=== PATIENT | male | born 1940 | race Caucasian/White ===

== ENCOUNTER 2017-05-07 09:26 | Emergency (ER) | payer MEDICARE ==
[~2017-05-07] VITALS: Ht 180.3 cm; Wt 79.4 kg
[~2017-05-07 09:26] MED LIST: AMIODARONE HCL200 MG PO; FLUOXETINE HCL20 MG PO; METOPROLOL TART50 MG PO; RAMIPRIL10 MG PO; WARFARIN SODIU2.5 MG PO; WARFARIN SODIUM4 MG PO
[2017-05-07] MEDS ORDERED: MINOCYCLINE HCL50 MG PO ×2 (11:24→11:25)
[2017-05-07] MEDS ORDERED: WARFARIN SODIUM1 MG PO (11:25)
[2017-05-07 11:35] VITALS: BP 195/93
== END 2017-05-07 12:45 | disposition home or self-care (01) ==
LOC: FSED 09:26
DX: R42 Dizziness and giddiness (principal); R20.2 Paresthesia of skin; Z95.0 Presence of cardiac pacemaker
CPT/HCPCS: 93005

== ENCOUNTER 2019-02-18 07:14 | Emergency (ER) | payer MEDICARE ==
[~2019-02-18] VITALS: Ht 180.3 cm; Wt 79.4 kg
[~2019-02-18 07:14] MED LIST changes: +MINOCYCLINE HCL50 MG PO; +WARFARIN SODIUM1 MG PO
== END 2019-02-18 07:55 | disposition home or self-care (01) ==
LOC: ER 07:14
DX: R05 Cough (principal); J20.9 Acute bronchitis, unspecified
CPT/HCPCS: 99282

== ENCOUNTER 2019-06-12 00:54 | Emergency (ER) | payer MEDICARE ==
[~2019-06-12] VITALS: Ht 180.3 cm; Wt 79.4 kg
--- NOTE | 2019-06-12 01:55 | Diagnostic Imaging Report ---
EXAM: ABDOMEN 2 VIEW, DATE: 06/12/2019 12:59 AM INDICATION: No bowel movement. COMPARISON: None FINDINGS: LINES/TUBES: None BOWEL PATTERN: No dilatation of small bowel loops in the right lower quadrant suggesting mild ileus. Large volume of stool within the colon and rectum. SOFT TISSUES: Vascular calcifications. Multiple small phleboliths in the lower pelvis. LUNG BASES: Mild bibasilar scarring. Right atrial and right ventricular pacemaker leads. BONES: No acute findings. Degenerative changes of the lumbar spine with mild rotatory levoscoliosis. IMPRESSION: Large volume of stool within the colon and rectum. Signed by: Dr. Christiano Santamaria M.D. on 06/12/2019 1:52 AM
[2019-06-12] MEDS ORDERED: SOD PHOSPHATE/SOD BIPHOSPHATE ENEMA 132 ML BTL PR ONE (02:10)
--- NOTE | 2019-06-12 02:15 | NUR ---
PT CHECKED DIGITALLY FOR IMPACTION PER MD ORDERS. NO IMPACTION NOTED, PT NOTED PASSING FLATUS. MD STATES TO DC PATIENT C INSTRUCTION TO TAKE OTC MIRALAX AND PERFORM ENEMA NEEDED.
== END 2019-06-12 02:11 | disposition home or self-care (01) ==
LOC: ER 00:54
DX: K59.00 Constipation, unspecified (principal); R10.84 Generalized abdominal pain; G62.9 Polyneuropathy, unspecified; Z95.0 Presence of cardiac pacemaker; Z96.653 Presence of artificial knee joint, bilateral
CPT/HCPCS: 74019; 99283

== ENCOUNTER 2019-10-31 14:02 | Emergency (ER) | payer MEDICARE ==
[~2019-10-31] VITALS: Ht 180.3 cm; Wt 79.4 kg
[2019-10-31] MEDS ORDERED: DIATRIZOATE MEGL/DIATRIZOA SOD 30 ML BTL PO ONE (14:48)
[2019-10-31 14:54] LABS: BASOPHILS % 0.4 % (0.0-1.0); EOSINOPHILS # (AUTO) 0.2 (0.0-0.4); EOSINOPHILS % 1.9 % (0.0-6.0); HEMATOCRIT 43.2 % (38.2-49.6); HEMOGLOBIN 14.7 g/dL (14.0-18.0); LYMPHOCYTES # (AUTO) 0.9 (1.0-3.2); LYMPHOCYTES % 10.9 % (18.0-39.1); MEAN CORPUSCULAR HEMOGLOBIN 31.1 pg (28-32); MEAN CORPUSCULAR VOLUME 91.5 fL (81-99); MONOCYTES % 12.2 % (4.4-11.3); NEUTROPHILS # (AUTO) 5.9 (2.1-6.9); NEUTROPHILS % 74.3 % (38.7-80.0); PLATELET COUNT 204 x10e3/uL (140-360); RED BLOOD COUNT 4.72 x10e6/uL (4.3-5.7); RED CELL DISTRIBUTION WIDTH 12.9 % (11.7-14.4)
[2019-10-31 15:02] LABS: ALANINE AMINOTRANSFERASE 29 IU/L (0-55); ALBUMIN 4.6 g/dL (3.5-5.0); ALBUMIN/GLOBULIN RATIO 1.5 (0.8-2.0); ALKALINE PHOSPHATASE 73 IU/L (40-150); ANION GAP 14.9 mmol/L (8-16); BLOOD UREA NITROGEN 10 mg/dL (7-26); BUN/CREATININE RATIO 14 (6-25); CALCIUM 9.4 mg/dL (8.4-10.2); CARBON DIOXIDE 25 mmol/L (22-29); CHLORIDE 99 mmol/L (98-107); EST GLOMERULAR FILTRATION RATE > 60 ML/MIN (60-); GLUCOSE 99 mg/dL (74-118); POTASSIUM 3.9 mmol/L (3.5-5.1); SODIUM 135 mmol/L (136-145)
--- OUTSIDE RECORDS SUMMARY | 2019-10-31 16:12 | XMS REPORT | Continuity of Care Document ---
Author Author [employer] DOROTHY Carrion Organization [employer] Address Unknown Phone Unavailable Care Team Providers Care Midlevel Provider Name Role Phone [employer] Unavailable Un available Problems Problem Status Onset Date Classification Date Reported Comments Source Former smoker Active Problem 12/06/2017 Adelaide Felipe Essential hypertension Active Problem 12/06/2017 Mohchauncey Felipe Abnormal EKG Active Problem 12/06/2017 Adelaide Felipe Status post catheter ablation of atrial fibrillation Active Problem 12/06/2017 Adelaide Felipe Paroxysmal a-fib Active Problem 12/06/2017 Adelaide Felipe Dizziness Active Problem 12/06/2017 Adelaide Felipe Arteriosclerosis of both carotid arteries Active Problem 12/06/2017 Adelaide Felipe Near syncope Active Problem 12/06/2017 Adelaide Felipe Status post catheter ablation of atrial flutter Active Problem 12/06/2017 Adelaide Felipe HERRON (dyspnea on exertion) Acti ve Problem 02/2018 Adelaide Felipe Weakness of both lower extremities Active Problem 02/2018 Adelaide Felipe Chronic systolic heart failure Active Problem 02/2018 Adelaide Felipe Autonomic postural hypotension Active Problem 02/2018 Adelaide Felipe Autonomic dysfunction Active Problem 12/06/2017 Adelaide Felipe Cardiac pacemaker in situ Acti ve Problem 02/2018 Adelaide Felipe Chest Pain Active Diagnosis 11/30/2013 Adelaide Felipe Osteoarthrosis, unspecified whether gene ralized or localized, unspecified site Active Problem 11/30/2013 Adelaide Felipe Atrial flutter Active Diagnosis 11/30/2013 Adelaide Felipe HERRON (dyspnea on exertion) Acti ve Problem 08/2013 Adelaide Felipe Abnormal EKG Active Problem 11/30/2013 Adelaide Felipe HTN, Benign Active Problem 11/30/2013 Adelaide Felipe CHF Chronic Systolic Heart Failure Active Problem 08/2013 Adelaide Felipe HTN heart dis, benign, with CHF Active Problem 08/2013 Adelaide Felipe Medications Medication Details Route Status Patient Instructions Ordering Provider Order Date Source Warfarin Sodium 1 tablet Orally Active 2.5 MG Orally daily Destinee Felipe Calcium 1 tablet with meals Orally Active 500 MG Orally Twice a day Destinee Felipe Fluoxetine HCl 1 capsule in th morning Orally Active 20 mg Orally Once a day Destinee Avilachauncey Shahnaz Felipe Metoprolol Succinate 1 tablet Orally Active 50 mg Orally twice a day (bid) Destinee Avilachauncey Shahnaz Felipe Digoxin 1 tablet orally Active 0.25 mg orally // [facility] Amiodarone HCl 1 tablet Orally Active 200 MG Orally Once a da y Destinee Avilachauncey Shahnaz Felipe Ramipril 1 capsule Orally Active 5 MG Orally Once a day [facility] Felipe BuPROPion HCl 1 tablet Orally Active 300 MG Orally Once a da y Destinee Avilachauncey Shahnaz Felipe Warfarin Sodium 1 tablet PO Active 5 MG PO 5/ 2.5 Alternat ing Destinee Felipe Allergies, Adverse Reactions, Alerts Substance Category Reaction Severity Reaction type Status Date Reported Comments Source Peridex Adverse Reaction hives Adverse Reaction Active 11/07/2013 Adelaide Felipe Immunizations No Data Provided for This Section Results No Data Provided for This Section Pathology Reports No Data Provided for This Section Diagnostic Reports No Data Provided for This Section Consultation Notes No Data Provided for This Section Discharge Summaries No Data Provided for This Section History and Physicals No Data Provided for This Section Vital Signs Vital Sign Value Date Comments Source Weight 181 11/07/2013 Adelaied Felipe Height 71 0 11/07/2013 Adelaide Felipe Temperature Oral (F) 98.5 F 11/07/2013 Adelaide Felipe Heart Rate 100 11/07/2013 Adelaide Felipe Diastolic (mm Hg) 82 11/07/2013 Adelaide Felipe Systolic (mm Hg) 120 11/07/2013 Adelaide Felipe Encounters Location Location Details Encounter Type Encounter Number Reason For Visit Attending Provider ADM Date DC Date Status Source Adelaide Felipe MD [place] Unknown [id number] 11/08/19 14 11/07/2013 Adelaide Felipe Procedures No Data Provided for This Section Assessment and Plan No Data Provided for This Section Plan of Care No Data Provided for This Section Social History Social History Date Source Social History ElementQualifiersDate Rep orted Smoking . Status Former Smoker Quit in 1970 Nov 07, 2013 Alcohol Use Yes. 3 beers per day Nov 07, 2013 Alcohol Screening: Yes. Did you have a drink containing alcohol in the past year?: Yes, How often did you have a drink containing alcohol in the past year?: Two to four times a month (2 points), How many drinks did you have on a typical day when you were drinking in the past year?: 3 or 4 (1 point), How often did you have six or more drinks on one occasion in the past year?: Weekly (3 points), Points: 6, Interpretation: Positive Nov 07, 2013 Marital Status: . Nov 07, 2013 Do you drink alcohol? Yes. Nov 07, 2013 11/07/2013 Adelaide Felipe Family History No Data Provided for This Section Advance Directives No Data Provided for This Section Functional Status No Data Provided for This Section
--- OUTSIDE RECORDS SUMMARY | 2019-10-31 16:12 | XMS REPORT | Continuity of Care Document ---
Author Author [facility] t Organization [facility] Address [address] [place] [address] Phone Unavailable Care Team Providers Care Activity Therapy Specialist Name Role Phone EDITA FISHER MD PCP Himanshu ABBOTT Attphymonika Unavailable Payers Payer Name Policy Type Policy Number Effective Date Expiration Date Monika ESPINOZA [id number] 2018 00:00:00 [facility] Medicare A & B [id number] [facility] Problems Condition Name Condition Details Condition Category Status Onset Date Resolution Date Last Treatment Date Treating Clinician Comments Source Former smoker Form er smoker Active Problem 12/06/2017 Mohamed O Jeroudi Problem Active 2017-12-06 02:47:50 Riya Razo Essential hypertension Esse ntial hypertension Active Problem 12/06/2017 Mohamed O Jeroudi Problem Active 20 13-12-11 02:47:50 Riya Razo Abnormal EKG Abno rmal EKG Active Problem 12/06/2017 Mohamed O Jeroudi Problem Active 2017-12-06 02:47:50 Riya Razo Status post catheter ablation of atrial fibrillation Status post catheter ablation of atrial fibrillation Active Problem 12/06/2017 Mohamed O Jeroudi Problem Active 2017-12-06 02:47:50 Riya Razo Paroxysmal a-fib Paro xysmal a-fib Active Problem 12/06/2017 Mohamed O Jeroudi Problem Active 2017-12-06 02:47:50 Riya Razo Dizziness Dizz iness Active Problem 12/06/2017 Mohamed O Jeroudi Problem Active 2017-12-06 02:47:50 Riya Razo Arteriosclerosis of both carotid arteries Arteriosclerosis of both carotid arteries Active Problem 12/06/2017 Mohamed O Jeroudi Problem Active 2017-12-06 02:47:50 Tae Razo Near syncope Near syncope Active Problem 12/06/2017 Adelaide Gillilanddi Problem Active 2017-12-06 02:47:50 [facility] Status post catheter ablation of atrial flutter Status post catheter ablation of atrial flutter Active Problem 12/06/2017 Adelaide Gillilanddi Problem Active 2017-12-06 02:47:50 Tae [facility] [place] HERRON (dyspnea on exertion) HERRON (dyspnea on exertion) Active Problem 12/06/2017 Adelaide Felipe Problem Active 13-12-11 02:47:50 [facility] Weakness of both lower extremities Weakness of both lower extremities Active Problem 12/06/2017 Mohchauncey Gillilanddi Problem Active 2017-12-06 02:47:50 [facility] Chronic systolic heart failure Chronic systolic heart failure Active Problem 12/06/2017 Adelaide Felipe Problem Active 2017-12-06 02:47:50 [facility] 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 Active Problem 12/06/2017 Adelaide Felipe Problem Active 2017-12-06 02:47:50 [facility] Autonomic dysfunction Auto nomic dysfunction Active Problem 12/06/2017 Adelaide Felipe Problem Active 2017-12-06 02:47:5 0 [facility] Cardiac pacemaker in situ Card iac pacemaker in situ Active Problem 12/06/2017 Adelaide Felipe Problem Active 13-12-11 02:47:50 [facility] Chest Pain Ches t Pain Active Diagnosis 11/30/2013 Adelaide Felipe Diagnosis Active 2013-11-30 02:48:44 [facility] Osteoarthrosis, unspecified whether generalized or loc alized, unspecified site Osteoarthrosis, unspecified whether generalized or localized, unspecified site Active Problem 11/30/2013 Adelaide Gillilanddi Problem Active 2013-11-30 02:48:44 [facility] [place] Atrial flutter Atri al flutter Active Diagnosis 11/30/2013 Mohamed O Austinoudi Diagnosis Active 2013-11-30 02:48:4 4 [facility] [place] HERRON (dyspnea on exertion) HERRON (dyspnea on exertion) Active Problem 11/30/2013 Adelaide Gillilanddi Problem Active 08-12-05 02:48:44 [facility] Abnormal EKG Abno rmal EKG Active Problem 11/30/2013 Mohamed O Austinoudi Problem Active 2013-11-30 02:48:44 [facility] HTN, Benign HTN, Benign Active Problem 11/30/2013 Adelaide Avilaoudi Problem Active 2013-11-30 02:48:44 [facility] CHF Chronic Systolic Heart Failure CHF Chronic Systolic Heart Failure Active Problem 11/30/2013 Adelaide Avilaoudi Problem Active 2013-11-30 02:48:44 [facility] HTN heart dis, benign, with CHF HTN heart dis, benign, with CHF Active Problem 11/30/2013 Adelaide Avilaoudi Problem Active 2013-11-30 02:48:44 [facility] Allergies, Adverse Reactions, Alerts Allergy Name Allergy Type Status Severity Reaction(s) Onset Date Inacti ve Date Treating Clinician Comments Source Chlorhexidine Allergy to Substance Active 2017-05-07 00:00: 00 [facility] Peridex Peridex Active hives 2013-11-07 00:00:00 [facility] Social History Social Habit Start Date Stop Date Quantity Comments Source Smoking 2013-11-07 00:00:00 2013-11-07 00:00:00 [facility] Medications Ordered Medication Name Filled Medication Name Start Date Stop Da te Current Medication? Ordering Clinician Indication Dosage Frequency Signature (SIG) Comments Components Source Warfarin Sodium 2017-12-06 02:47:50 Yes Mohamed Jeroudi 1 tablet [facility] Calcium 2013-11-30 02:48:44 Yes Mohamed Jeroudi 1 tablet with meals [facility] Fluoxetine HCl 2013-11-30 02:48:44 Yes Mohamed Jeroudi 1 capsule in the morning [facility] Metoprolol Succinate 2013-11-30 02:48:44 Yes Mohamed Jeroudi 1 tablet [facility] Digoxin 2013-11-30 02:48:44 Yes Mohamed Jeroudi 1 tablet [facility] Amiodarone HCl 2013-11-30 02:48:44 Yes Mohamed Jeroudi 1 tablet [facility] Ramipril 2013-11-30 02:48:44 Yes Mohamed Jeroudi 1 capsule [facility] BuPROPion HCl 2013-11-30 02:48:44 Yes Mohamed Jeroudi 1 tablet [facility] Warfarin Sodium 2013-11-30 02:48:44 Yes Mohamed Jeroudi 1 tablet [facility] Amiodarone Hcl 200 Mg Tablet Amiodarone Hcl 200 Mg Tablet Y es 200 M,W,F [facility] Fluoxetine Hcl 20 Mg Capsule Fluoxetine Hcl 20 Mg Capsule Y es [address] [facility] Metoprolol Tartrate 50 Mg Tablet Metoprolol Tartrate 50 Mg Tablet Yes 50 Twice A Day [facility] Minocycline Hcl 50 Mg Capsule Minocycline Hcl 50 Mg Capsule Yes [address] [facility] Minocycline Hcl 50 Mg Capsule Minocycline Hcl 50 Mg Capsule Yes [address] [facility] Ramipril 10 Mg Capsule Ramipril 10 Mg Capsule Yes 10 Daily [facility] Warfarin Sodium 1 Mg Tablet Warfarin Sodium 1 Mg Tablet Yes 1 Daily [facility] Warfarin Sodium 2.5 Mg Tablet Warfarin Sodium 2.5 Mg Tablet Yes 2.5 T,W,Th, Sat,Sun [facility] Warfarin Sodium 4 Mg Tablet Warfarin Sodium 4 Mg Tablet Yes 5 M,F [facility] Vital Signs Vital Name Observation Time Observation Value Comments Source Weight 2013-11-07 20:00:00 [facility] Height 2013-11-07 20:00:00 [facility] Temperature Oral (F) 2013-11-07 20:00:00 98.5 F [facility] Heart Rate 2013-11-07 20:00:00 [facility] Diastolic (mm Hg) 2013-11-07 20:[facility] Systolic (mm [facility]) 2013-11-07 20:00:00 [facility] Procedures This patient has no known procedures. Encounters Start Date/Time End Date/Time [facility] ID Source 2019-06-12 00:54:00 2019-06-12 02:11:00 Departed Emergency Room 1 ABBOTT ALYSSA [facility] [id number] [facility] 2019-02-18 07:14:00 2019-02-18 07:55:00 Departed Emergency Room [facility] [id number] [facility] 2017-10-24 09:08:00 2017-10-24 09:08:00 Outpatient Adelaide Gillilanddi MD [place] [id number] [employer] 2017-05-07 09:26:00 2017-05-07 12:45:00 Departed Emergency Room [facility] [id number] [facility] 2017-05-03 17:02:00 2017-05-03 17:02:00 Outpatient Adelaide Felipe MD [place] [id number] [employer] 2016-10-12 13:28:00 2016-10-12 13:28:00 Outpatient Adelaide Felipe MD [place] [id number] [employer] 2016-07-04 12:42:00 2016-07-04 12:42:00 Outpatient Adelaide Felipe MD [place] [id number] [employer] 2013-11-07 15:00:00 2013-11-07 15:00:00 [place] [id number] [employer] Results Test Description Test Time Test Comments Results Result Comments Source ABDOMEN 2 VIEW 2019-06-12 01:49:00 [place] [address] Patient Name: DOROTHY ESTEVEZ MR #: [id number] : 1940 Age/Sex: 78/M Req #: [id number] Adm Physician: Ordered by: ALYSSA ABBOTT MD Report #: [id number] Location: ER Room/Bed: Procedure: [id number] DX/ABDOMEN 2 VIEW Exam Date: 06/12/19 Exam Time: 0130 REPORT STATUS: Signed EXAM: ABDOMEN 2 VIEW, DATE: 06/12/2019 12:59 AM INDICATION: No bowel movement. COMPARISON: None FINDINGS: LINES/TUBES: None BOWEL PATTERN: No dilatation of small bowel loops in the right lower quadrant suggesting mild ileus. Large volume of stool within the colon and rectum. SOFT TISSUES: Vascular calcifications. Multiple small phleboliths in the lower pelvis. LUNG BASES: Mild bibasilar scarring. Right atrial and right ventricular pacemaker leads. BONES: No acute findings. Degenerative changes of the lumbar spine with mild rotatory levoscoliosis. IMPRESSION: Large volume of stool within the colon and rectum. Signed by: Dr. Christiano Hannon M.D. on 06/12/2019 1:52 AM Dictated By: OLIVER HANNON MD, MD 1 Transcribed By: JIM on 06/12/19151 COPY TO: ALYSSA ABBOTT MD
--- OUTSIDE RECORDS SUMMARY | 2019-10-31 16:12 | XMS REPORT ---
Author Author Duc Felipe Organization [employer] Address Unknown Phone Unavailable Care Team Providers Care Railroad Baggage Porter Name Role Phone Adelaide Felipe CP Unavailable Allergies, Adverse Reactions, Alerts Substance Reaction Event Type Peridex hives Drug Allergy Encounters Encounter Location Date Unknown Adelaide Felipe MD [place] Nov 07, 2013 Problems Problem Type Condition ICD-9 Code Onset Dates Condition Statu s Assessment Chest Pain 786.51 Active Problem Osteoarthrosis, unspecified whether generalized or localized, unspecified site 715.90 Active Assessment Atrial flutter 427.32 Active Problem HERRON (dyspnea on exertion) 786.09 Ac tive Problem Abnormal EKG 794.31 Active Problem Atrial flutter 427.32 Active Problem Chest Pain 786.51 Active Problem HTN, Benign 401.1 Active Problem CHF Chronic Systolic Heart Failure 428.22 Active Problem HTN heart dis, benign, with CHF 402.11 Active Assessment HTN heart dis, benign, with CHF 402.11 Active Assessment HTN, Benign 401.1 Active Assessment HERRON (dyspnea on exertion) 786.09 Ac tive Assessment Abnormal EKG 794.31 Active Assessment Osteoarthrosis, unspecified whether generalized or localized, unspecified site 715.90 Active Assessment CHF Chronic Systolic Heart Failure 428.22 Active Medications Medication Code System Code Instructions Start Date End Date Status Dosage [facility] [address] 500 MG Orally Twice a day A ctive 1 tablet with meals Fluoxetine HCl [facility] [address]-92 20 mg Orally Once a day Active 1 capsule in the morning Metoprolol Succinate Unknown 0 50 mg Orally twice a day (bid) Active 1 tablet Digoxin Unknown 0 0.25 mg orally M// Active 1 t ablet Amiodarone HCl [facility] [address]-27 200 MG Orally Once a day Active 1 tablet Ramipril [facility] [address]-13 5 MG Orally Once a day A ctive 1 capsule BuPROPion HCl [facility] [address]-29 300 MG Orally Once a day Active 1 tablet Warfarin Sodium [facility] [address]-83 5 MG PO 5/ 2.5 Alternating Active 1 tablet Social History Social History Element Qualifiers Date Reported Smoking . Status Former Smoker Quit in [...] you drink alcohol? Yes. Nov 07, 2013 Vital Signs Date/Time: Nov 07, 2013 Weight 181 lbs Height 71 in Temperature 98.5 F Cardiac Monitoring Heart Rate 100 /min Blood Pressure Diastolic 82 mm Hg Blood Pressure Systolic 120 mm Hg Summary Purpose [employer] Submission
--- OUTSIDE RECORDS SUMMARY | 2019-10-31 16:12 | XMS REPORT ---
Author Author Alvin Felipe Organization [employer] Address Unknown Phone Unavailable Care Team Providers Care Export Freight Specialist Name Role Phone Adelaide Felipe CP Unavailable Allergies No Known Allergies Problems Problem Type Condition Code Onset Dates Condition Statu s Problem Former smoker Z87.891 Active Problem Essential hypertension I10 Activ e Problem Abnormal EKG R94.31 Active Problem Status post catheter ablation of atrial fibrillation Z 98.890 Active Problem Paroxysmal a-fib I48.0 Active Problem Dizziness R42 Active Problem Arteriosclerosis of both carotid arteries I65.23 Active Problem Near syncope R55 Active Problem Status post catheter ablation of atrial flutter Z98.89 Active Problem HERRON (dyspnea on exertion) R06.09 Ac tive Problem Weakness of both lower extremities M62.81 Active Problem Chronic systolic heart failure I50.22 Active Medications No Known Medications Results No Known Results Summary Purpose [employer] Submission
--- OUTSIDE RECORDS SUMMARY | 2019-10-31 16:12 | XMS REPORT ---
Author Author Alvin Felipe Organization [employer] Address Unknown Phone Unavailable Care Team Providers Care Remotely Operated Vehicle Name Role Phone Adelaide Felipe CP Unavailable Allergies No Known Allergies Problems Problem Type Condition Code Onset Dates Condition Statu s Problem Paroxysmal a-fib I48.0 Active Problem Abnormal EKG R94.31 Active Problem Former smoker Z87.891 Active Problem Status post catheter ablation of atrial fibrillation Z 98.890 Active Problem Arteriosclerosis of both carotid arteries I65.23 Active Problem Weakness of both lower extremities M62.81 Active Problem Dizziness R42 Active Problem HERRON (dyspnea on exertion) R06.09 Ac tive Problem Essential hypertension I10 Activ e Problem Chronic systolic heart failure I50.22 Active Problem Status post catheter ablation of atrial flutter Z98.89 Active Medications No Known Medications Results No Known Results Summary Purpose [employer] Submission
--- OUTSIDE RECORDS SUMMARY | 2019-10-31 16:12 | XMS REPORT ---
Author Author Alvin Felipe Organization [employer] Address Unknown Phone Unavailable Care Team Providers Care Metal Casket Maker Name Role Phone Adelaide Felipe CP Unavailable Allergies No Known Allergies Problems Problem Type Condition Code Onset Dates Condition Statu s Problem Former smoker Z87.891 Active Problem Abnormal EKG R94.31 Active Problem Paroxysmal a-fib I48.0 Active Problem Status post catheter ablation of atrial fibrillation Z 98.890 Active Problem Status post catheter ablation of atrial flutter Z98.89 Active Problem Dizziness R42 Active Problem Arteriosclerosis of both carotid arteries I65.23 Active Problem Near syncope R55 Active Problem HERRON (dyspnea on exertion) R06.09 Ac tive Problem Chronic systolic heart failure I50.22 Active Problem Weakness of both lower extremities M62.81 Active Problem Essential hypertension I10 Activ e Medications No Known Medications Results No Known Results Summary Purpose [employer] Submission
--- OUTSIDE RECORDS SUMMARY | 2019-10-31 16:12 | XMS REPORT ---
Author Author Alvin Felipe Organization [employer] Address Unknown Phone Unavailable Care Team Providers Care Critical Care Clinical Nurse Specialist Name Role Phone Adelaide Felipe CP Unavailable Allergies No Known Allergies Problems Problem Type Condition Code Onset Dates Condition Statu s Problem HERRON (dyspnea on exertion) R06.09 Ac tive Problem Status post catheter ablation of atrial flutter Z98.89 Active Problem Essential hypertension I10 Activ e Problem Autonomic postural hypotension I95.1 Active Problem Autonomic dysfunction G90.9 Active Problem Cardiac pacemaker in situ Z95.0 Ac tive Problem Arteriosclerosis of both carotid arteries I65.23 Active Problem Weakness of both lower extremities M62.81 Active Problem Near syncope R55 Active Problem Dizziness R42 Active Problem Former smoker Z87.891 Active Problem Paroxysmal a-fib I48.0 Active Assessment Paroxysmal a-fib I48.0 Active Problem Abnormal EKG R94.31 Active Problem Status post catheter ablation of atrial fibrillation Z 98.890 Active Problem Chronic systolic heart failure I50.22 Active Medications Medication Code System Code Instructions Start Date End Date Status Dosage Warfarin Sodium [facility] 13725646601 2.5 MG Orally daily Active 1 tablet Results No Known Results Summary Purpose [employer] Submission
--- NOTE | 2019-10-31 16:46 | Diagnostic Imaging Report ---
EXAMINATION: CT of the abdomen and pelvis with contrast. TECHNIQUE: Helical CT images of the abdomen and pelvis were performed from the lung bases to the lesser trochanters after the intravenous administration of 100 cc of Omnipaque 300 and the oral administration of enteric contrast. Coronal and sagittal reformatted images were obtained. Dose modulation, iterative reconstruction, and/or weight based adjustment of the mA/kV was utilized to reduce the radiation dose to as low as reasonably achievable. COMPARISON: None. CLINICAL HISTORY:Abdominal pain DISCUSSION: ABDOMEN/PELVIS: LOWER THORAX:Unremarkable. HEPATOBILIARY: No focal hepatic lesions. No intra-or extrahepatic biliary ductal dilation. The gallbladder is normal. SPLEEN: No splenomegaly. PANCREAS: No focal masses or ductal dilatation. ADRENALS: No adrenal nodules. KIDNEYS/URETERS: No hydronephrosis, stones, or solid mass lesions. PELVIC ORGANS/BLADDER: Filling defect in the base of the bladder appears to be reflective of prostatic hypertrophy. PERITONEUM/RETROPERITONEUM: No free air or fluid. LYMPH NODES: No intra-abdominal, retroperitoneal, pelvic or inguinal lymphadenopathy. VESSELS: The celiac trunk,superior and inferior mesenteric and bilateral renal arteries are patent The portal, superior mesenteric and splenic veins are patent. GI TRACT: No obstruction. Colonic diverticulosis without inflammatory change BONES AND SOFT TISSUE: No bony destructive lesions. No soft tissue abnormalities. IMPRESSION: No acute CT finding. Colonic diverticulosis without inflammatory change Signed by: Dr. Gumaro Morin M.D. on 10/31/2019 4:42 PM
[2019-10-31 16:53] LABS: BILIRUBIN,URINE NEGATIVE (NEGATIVE); CLARITY,URINE SL CLOUDY (CLEAR); COLOR,URINE YELLOW (YELLOW); KETONES,URINE NEGATIVE (NEGATIVE); LEUKOCYTE ESTERASE ,URINE NEGATIVE (NEGATIVE); NITRITE,URINE NEGATIVE (NEGATIVE); PROTEIN,URINE DIPSTICK 1+ (NEGATIVE); URINE UROBILINOGEN 0.2 mg/dL (0.2 - 1)
[2019-10-31 17:01] LABS: BACTERIA,URINE FEW /HPF; RBC,URINE 21-50 /HPF (0-5)
[2019-10-31] MEDS ORDERED: COLACE100 MG PO (17:13)
--- NOTE | 2019-10-31 17:17 | Emergency Department Note ---
History of Present Illnes History of Present Illness Chief Complaint: General Medicine Complaints History of Present Illness This is a 79 year old male arrives to the ED with concerns of constipation.. Chief Complaint Comment Patient in from home with complaints of loose bowel movements after eating and then "dorian" shortly there after for the last 7 days. Patient reports that he sometimes goes to the restroom and has the urge to have a bowel movement but then nothing happens. Patient denies abdominal pain or other symptoms. Historian: Patient Arrival Mode: Car Onset (how long ago): week(s) Duration (how long): week(s) Progression: waxing and waning Past Medical/Family History Physician Review I have reviewed the patient's past medical and family history. Any updates have been documented here. Past Medical History Recent Fever: No Clinical Suspicion of Infectio: No New/Unexplained Change in Ment: No Past Medical History: A-Fib Other Medical History: Short term memory loss Past Surgical History: Pacer/AICD Other Surgery: BILATERAL KNEE SURGERY Social History Smoking Cessation: Never Smoker Counseling Performed: No Alcohol Use: None Any Illegal Drug Use: No Physically hurt or threatened: No Other Last Tetanus: unknown Any Pre-Existing Lines (PICC,: No Review of Systems Review of Systems Constitutional: Reports no symptoms EENTM: Reports no symptoms Cardiovascular: Reports no symptoms Respiratory: Reports no symptoms Gastrointestinal: Reports as per HPI Genitourinary: Reports no symptoms Musculoskeletal: Reports no symptoms Integumentary: Reports no symptoms Neurological: Reports no symptoms Psychological: Reports no symptoms Endocrine: Reports no symptoms Hematological/Lymphatic: Reports no symptoms Physical Exam Related Data Allergies: Coded Allergies: chlorhexidine (Verified Allergy, Unknown, 05/07/17) Triage Vital Signs Vital Signs Date Time Temp Pulse Resp B/P (MAP) Pulse Ox O2 Delivery O2 Flow Rate FiO2 10/31/19 14:09 99.4 106 19 182/112 100 Room Air Vital signs reviewed: Yes Physical Exam CONSTITUTIONAL Constitutional: Present well-developed, Present well-nourished HENT HENT: Present normocephalic, Present atraumatic, Present oropharynx clear/moist, Present nose normal HENT L/R: Present left ext ear normal, Present right ext ear normal EYES Eyes: Reports PERRL, Reports conjunctivae normal NECK Neck: Present ROM normal PULMONARY Pulmonary: Present effort normal, Present breath sounds normal CARDIOVASCULAR Cardiovascular: Present regular rhythm, Present heart sounds normal, Present capillary refill normal, Present normal rate GASTROINTESTINAL Abdominal: Present soft, Present bowel sounds normal, Present tender GENITOURINARY Genitourinary: Present exam deferred SKIN Skin: Present warm, Present dry MUSCULOSKELETAL Musculoskeletal: Present ROM normal NEUROLOGICAL Neurological: Present alert, Present oriented x 3, Present no gross motor or sensory deficits PSYCHOLOGICAL Psychological: Present mood/affect normal, Present judgement normal Results Laboratory Result Diagram: 10/31/19 1400 10/31/19 1400 Laboratory Laboratory Tests Test 10/31/19 14:00 White Blood Count 7.89 x10e3/uL (4.8-10.8) Red Blood Count 4.72 x10e6/uL (4.3-5.7) Hemoglobin 14.7 g/dL (14.0-18.0) Hematocrit 43.2 % (38.2-49.6) Mean Corpuscular Volume 91.5 fL (81-99) Mean Corpuscular Hemoglobin 31.1 pg (28-32) Mean Corpuscular Hemoglobin Concent 34.0 g/dL (31-35) Red Cell Distribution Width 12.9 % (11.7-14.4) Platelet Count 204 x10e3/uL (140-360) Neutrophils (%) (Auto) 74.3 % (38.7-80.0) Lymphocytes (%) (Auto) 10.9 % (18.0-39.1) Monocytes (%) (Auto) 12.2 % (4.4-11.3) Eosinophils (%) (Auto) 1.9 % (0.0-6.0) Basophils (%) (Auto) 0.4 % (0.0-1.0) Neutrophils # (Auto) 5.9 (2.1-6.9) Lymphocytes # (Auto) 0.9 (1.0-3.2) Monocytes # (Auto) 1.0 (0.2-0.8) Eosinophils # (Auto) 0.2 (0.0-0.4) Basophils # (Auto) 0.0 (0.0-0.1) Absolute Immature Granulocyte (auto 0.02 x10e3/uL (0-0.1) Urine Color Yellow (YELLOW) Urine Clarity Sl cloudy (CLEAR) Urine pH 7 (5 - 7) Urine Specific [place] 1.015 (1.010-1.025) Urine Protein 1+ (NEGATIVE) Urine Glucose (UA) Negative (NEGATIVE) Urine Ketones Negative (NEGATIVE) Urine Blood Moderate (NEGATIVE) Urine Nitrite Negative (NEGATIVE) Urine Bilirubin Negative (NEGATIVE) Urine Urobilinogen 0.2 mg/dL (0.2 - 1) Urine Leukocyte Esterase Negative (NEGATIVE) Urine RBC 21-50 /HPF (0-5) Urine WBC None /HPF (0-5) Urine Epithelial Cells None /LPF (NONE) Urine Bacteria Few /HPF (NONE) Sodium Level 135 mmol/L (136-145) Potassium Level 3.9 mmol/L (3.5-5.1) Chloride Level 99 mmol/L (98-107) Carbon Dioxide Level 25 mmol/L (22-29) Anion Gap 14.9 mmol/L (8-16) Blood Urea Nitrogen 10 mg/dL (7-26) Creatinine 0.70 mg/dL (0.72-1.25) Estimat Glomerular Filtration Rate > 60 ML/MIN (60-) BUN/Creatinine Ratio 14 (6-25) Glucose Level 99 mg/dL (74-118) Calcium Level 9.4 mg/dL (8.4-10.2) Total Bilirubin 1.7 mg/dL (0.2-1.2) Aspartate Amino Transf (AST/SGOT) 27 IU/L (5-34) Alanine Aminotransferase (ALT/SGPT) 29 IU/L (0-55) Alkaline Phosphatase 73 IU/L (40-150) Total Protein 7.7 g/dL (6.5-8.1) Albumin 4.6 g/dL (3.5-5.0) Globulin 3.1 g/dL (2.3-3.5) Albumin/Globulin Ratio 1.5 (0.8-2.0) Lab results reviewed: Yes Imaging Imaging results reviewed: Yes Impressions IMPRESSION: No acute CT finding. Colonic diverticulosis without inflammatory change Assessment & Plan Medical Decision Making MDM This patient presents with abdominal pain of unclear etiology. A CT scan was performed to evaluate for potential causes of the abdominal pain, however, neither the clinical exam nor the CT has identified an emergent etiology for the abdominal pain. Specifically, given the benign exam, the laboratory studies, and unremarkable CT, I have a very low suspicion for appendicitis, ischemic bowel, bowel perforation, or any other life threatening disease. I have discussed with the patient the level of uncertainty with undifferentiated abdominal pain and c learly explained the need to follow-up as noted on the discharge instructions, or return to the Emergency Department immediately if the pain worsens, develops fever, persistent and uncontrollable vomiting, or for any new symptoms or concerns. Assessment & Plan Final Impression: (1) Abdominal pain (2) Diverticulosis Depart Disposition: HOME, SELF-CARE Last Vital Signs Date Time Temp Pulse Resp B/P (MAP) Pulse Ox O2 Delivery O2 Flow Rate FiO2 10/31/19 14:48 85 16 172/93 98 Room Air 10/31/19 14:09 99.4 Home Meds Active Scripts Docusate Sodium (COLACE) 100 Mg Cap, 100 MG PO DAILY, #30 CAP Prov:ELISABET APONTE DO 10/31/19 Reported Medications Minocycline Hcl (MINOCYCLINE HCL) 50 Mg Capsule, 50 MG PO BID, #60 TAB 05/07/17 Warfarin Sodium (WARFARIN SODIUM) 1 Mg Tablet, 1 MG PO DAILY, #30 TAB 05/07/17 Minocycline Hcl (MINOCYCLINE HCL) 50 Mg Capsule, 50 MG PO BID, #60 TAB 05/07/17 Warfarin Sodium (WARFARIN SODIUM) 4 Mg Tablet, 5 MG PO M,F 04/04/15 Warfarin Sodium (WARFARIN SODIUM) 2.5 Mg Tablet, 2.5 MG PO T,W,, MON,MON, #30 TAB 04/04/15 Ramipril (RAMIPRIL) 10 Mg Capsule, 10 MG PO DAILY 04/04/15 Metoprolol Tartrate (METOPROLOL TARTRATE) 50 Mg Tablet, 50 MG PO BID, TAB 04/04/15 Fluoxetine Hcl (FLUOXETINE HCL) 20 Mg Capsule, 20 MG PO DAILY, #30 CAP 04/04/15 Amiodarone Hcl (AMIODARONE HCL) 200 Mg Tablet, 200 MG PO M,W,04/04/15 Medications in the ED Diatrizoate Meglum/ Diatrizoate Sod 30 ml STK-MED ONCE PO ; Start 10/31/19 at 14:48; Stop 10/31/19 at 14:42; Status DC ELISABET APONTE DO Oct 31, 2019 17:17
[2019-10-31] MEDS ORDERED: GABAPENTIN 300 MG CAP PO STA (17:31)
[2019-10-31] MEDS ORDERED: IOPAMIDOL 370 MG/ML 200 ML INFUS..BTL INJ ONE (18:45)
[2019-10-31] MEDS ORDERED: SODIUM CHLORIDE 0.9% 50ML 50 ML ONE (18:45)
== END 2019-10-31 18:18 | disposition home or self-care (01) ==
LOC: ER 14:30
DX: R10.9 Unspecified abdominal pain (principal); K57.90 Diverticulosis of intestine, part unspecified, without perforation or abscess without bleeding; I48.91 Unspecified atrial fibrillation; R41.3 Other amnesia; Z95.810 Presence of automatic (implantable) cardiac defibrillator
CPT/HCPCS: 36415; 74177; 80053; 81001; 85025; 99284; Q9967

== ENCOUNTER 2024-07-10 11:51 | Emergency (ER) | payer MEDICARE ==
[~2024-07-10] VITALS: Ht 180.3 cm; Wt 80.3 kg
[~2024-07-10 11:51] MED LIST changes: +COLACE100 MG PO
[2024-07-10 12:08] VITALS: TEMP 97.5
[2024-07-10] MEDS: TRAMADOL HCL 50 MG TAB PO ONE (12:49)
[2024-07-10] MEDS: KETOROLAC TROMETHAMINE 30 MG/ML VIAL IM STA (12:50)
[2024-07-10 12:52] VITALS: PULSE 65; RESP 18; O2SAT 95
[2024-07-10] MEDS ORDERED: NAPROXEN250 MG PO (14:01)
== END 2024-07-10 14:14 | disposition home or self-care (01) ==
LOC: ER 12:05
DX: M25.552 Pain in left hip (principal); S76.012A Strain of muscle, fascia and tendon of left hip, initial encounter; R26.2 Difficulty in walking, not elsewhere classified; I48.91 Unspecified atrial fibrillation; Z95.810 Presence of automatic (implantable) cardiac defibrillator; Z86.59 Personal history of other mental and behavioral disorders
CPT/HCPCS: 73502; 99283; J1885